=== PATIENT | female | born 1945 | race Caucasian/White ===

== ENCOUNTER 2018-05-04 17:31 | Emergency (ER) | payer SELFPAY ==
[~2018-05-04] VITALS: Ht 152.4 cm; Wt 79.5 kg
[2018-05-04 17:33] VITALS: Ht 152.4 cm; Wt 79.5 kg
[2018-05-04] MEDS ORDERED: GLUCOPHAGE1000 MG PO (17:35)
[2018-05-04] MEDS ORDERED: TOPROL XL50 MG PO (17:36)
[2018-05-04] MEDS ORDERED: ATACAND16 MG PO (17:36)
[2018-05-04] MEDS ORDERED: NORVASC5 MG PO (17:36)
[2018-05-04] MEDS ORDERED: GLIMEPIRIDE1 MG PO (17:36)
[2018-05-04] MEDS ORDERED: BENADRYL25 MG PO (19:37)
[2018-05-04 19:49] VITALS: BP 116/85
== END 2018-05-04 19:52 | disposition home or self-care (01) ==
LOC: D.ER 17:31
DX: T63.461A Toxic effect of venom of wasps, accidental (unintentional), initial encounter (principal); Y92.89 Other specified places as the place of occurrence of the external cause; T63.441A Toxic effect of venom of bees, accidental (unintentional), initial encounter